=== PATIENT | female | born 1975 | race Two or more races ===

== ENCOUNTER 2020-01-03 20:18 | Emergency (ER) | payer BC ==
[~2020-01-03] VITALS: Ht 165.1 cm; Wt 62.6 kg
[2020-01-03 20:18] VITALS: BP 130/85
[2020-01-03] MEDS ORDERED: BUPIVACAINE 0.5 % PF 150 MG/30 ML VIAL ONE (20:56)
[2020-01-03] MEDS ORDERED: LIDOCAINE 1% INJ 50 ML MDV IJ ONE ×2 (20:56→21:00)
[2020-01-03] MEDS ORDERED: TDAP [DIPH/PERTUSSIS/TET] 0.5 ML VIAL IM ONE ×2 (20:57→21:00)
[2020-01-03] MEDS ORDERED: BUPIVACAINE 0.5 % PF 150 MG/30 ML VIAL IJ ONE (21:00)
== END 2020-01-03 23:23 | disposition home or self-care (01) ==
LOC: ER 20:20
DX: S61.211A Laceration without foreign body of left index finger without damage to nail, initial encounter (principal); W23.0XXA Caught, crushed, jammed, or pinched between moving objects, initial encounter; Y93.89 Activity, other specified; Y92.89 Other specified places as the place of occurrence of the external cause; Y99.8 Other external cause status
CPT/HCPCS: 12001; 73140; 90471; 90715; 99283; A6403; J3490 ×2